=== PATIENT | male | born 1995 | race Caucasian/White ===

== ENCOUNTER → 2023-04-07 | Outpatient (CLI) | payer BC ==
--- NOTE | 2023-04-09 09:23 | US ---
EXAMINATION TYPE: US abdomen complete DATE OF EXAM: 04/07/2023 COMPARISON: NONE CLINICAL INDICATION: Male, 27 years old with history of A42.9 UMBILICAL HERNIA WITHOUT OBSTRUCTION OR ; Assess for hernia at location of: umbilicus FINDINGS/IMPRESSION:Real-time scanning was performed by the [facility] [employer] utilizing Valsalva and additi onal dynamic maneuvers to assess for hernia. 1.6cm peristalsing outpouching seen at the umbilicus consistent with umbilical hernia containing harris l. Further evaluation with CT abdomen and pelvis is recommended.
== END | disposition home or self-care (01) ==
LOC: RADUSWWP 15:04
PROVIDERS: ATTEND Family Medicine
DX: K42.9 Umbilical hernia without obstruction or gangrene (principal)
CPT/HCPCS: 76705